=== PATIENT | female | born 1980 | race Caucasian/White ===

== ENCOUNTER 2020-12-12 14:32 | Emergency (ER) | payer OTHER ==
[~2020-12-12] VITALS: Ht 149.9 cm; Wt 87.0 kg
[2020-12-12] MEDS ORDERED: ASPIRIN 81MG TABLET PO ONE (17:45)
[2020-12-12 18:35] LABS: BASOPHILS % 1.1 % (0.0-2.0); EOSINOPHILS % 1.7 % (0.0-5.0); LYMPHOCYTES % 34.7 % (20.0-50.0); MEAN CORPUSCULAR HEMOGLOBIN 20.7 pg (28.0-32.0); MEAN CORPUSCULAR VOLUME 64.5 fL (81.0-99.0); MEAN PLATELET VOLUME 7.4 fl (7.4-10.4); MONOCYTES % 4.2 % (2.0-8.0); NEUTROPHILS % 58.3 % (40.0-76.0); PLATELET 355 x1000/uL (130-400); RED BLOOD CELL COUNT 4.35 mill/uL (4.2-5.4); RED CELL DISTRIBUTION WIDTH 19.5 % (11.6-14.6)
[2020-12-12 18:43] LABS: CHLORIDE 106 mEq/L (98-107)
[2020-12-12 19:32] LABS: PLATELET ESTIMATE NORMAL
[2020-12-12 21:25] VITALS: BP 124/75
== END 2020-12-12 21:41 | disposition home or self-care (01) ==
LOC: ER 14:32
DX: R07.89 Other chest pain (principal); Z98.890 Other specified postprocedural states
CPT/HCPCS: 36415; 71045; 80053; 84443; 84484; 85025; 93005; 99285; Z7610